=== PATIENT | male | born 1985 | race Two or more races ===

== ENCOUNTER → 2024-10-12 | Outpatient (CLI) | payer MEDICAID, SELFPAY ==
--- NOTE | 2024-10-12 15:00 | XR_ITS ---
Examination: CT abdomen with intravenous contrast CT pelvis with intravenous contrast 2-D coronal reconstructions 2-D sagittal reconstructions Date and time of exam:April 14, 2024 1521 hours INDICATIONS: Left lower abdominal pain beginning 2 months ago. CTDI: vol (mGy) 9.5 DLP: (mGycm) 588 Technique: Multiple axial sections of the abdomen and pelvis have been obtained. 64 slice high-resolution scanner used. 3 mm axial sections have been obtained, post intravenous injection 60 cc [id number] 2-D sagittal, coronal reconstructions obtained. Low dose protocols were performed. One or more of the following dose reduction techniques were used; automated exposure control, adjustment of the mA and/or KV according to patient size, use of iterative reconstruction technique. Findings: No liver or splenic lesion No gallstones No pancreatic or adrenal mass No renal or ureteral calculi Fluid distended small bowel loops Normal appendix No diverticulitis Urinary bladder intact No prostatomegaly IMPRESSION: Multiple fluid distended small bowel loops mild to moderate, consider ileus, enteritis such as Crohn's disease If early small bowel obstruction is a clinical consideration recommend 3 view abdominal series follow-up
== END | disposition home or self-care (01) ==
DX: K63.89 Other specified diseases of intestine (principal)
CPT/HCPCS: 74177; A4649; Q9967